=== PATIENT | female | born 1940 | race Caucasian/White ===

== ENCOUNTER 2023-07-21 18:16 | Emergency (ER) | payer MEDICARE, SELFPAY ==
--- NOTE | 2023-07-21 18:30 | ED_ITS ---
HPI - General Adult General Chief complaint: Wound/Laceration Stated complaint: agitated, wound to hand Time Seen by Provider: 07/21/23 18:23 History of Present Illness HPI narrative: This is an 83-year-old woman with dementia presenting for a skin tear to the back of her left hand. Patient got agitated and hit her hand at the memory care unit. She was then sent to the hospital for wound evaluation. Patient is A&O x1. Patient has severe dementia and cannot contribute meaningfully lead to the interview. Related Data Allergies Allergy/AdvReac Type Severity Reaction Status Date / Time No Known Allergies Allergy Verified 07/21/23 19:13 [facility] Past Medical History Medical History Dementia Exam Narrative: APPEARANCE: No apparent distress. Head: atraumatic. EYES: EOMI, NOSE: Atraumatic NECK: Trachea midline RESPIRATORY: No increased rate of breathing CARDIOVASCULAR: RRR, ABDOMINAL: Non-distended MUSCULOSKELETAl: No obvious deformities NEURO: Alert. Moving 4/4 extremities SKIN:: 10 cm arc shaped skin tear to the back the patient's left hand PSYCHIATRIC: Normal affect Procedures Laceration Laceration 1: Date: 07/21/23 Time: 19:46 Site: hand Side (If applicable): left Size (cm): 10 Description: linear Depth: simple, single layer Pre-repair: wound explored and irrigated extensively ====== Skin Level ====== Skin layer closed with: prolene Size (cm): 4-0 Number of sutures: 7 Technique: simple, interrupted ====== Subcutaneous Layer ====== ====== Muscle Layer ====== ====== Tendon Layer ====== Medical Decision Making MDM Narrative Medical decision making narrative: -Course: a 83-year-old patient with dementia presenting with a skin tear to her left hand. Given Versed/haldol for anxiolysis. Wound was repaired using sutures and steristrips. The patient given Tdap and Ancef. Patient discharged back to intermediate return precautions were -Procedures: skin tear repair -Interventions: Tdap, Keflex, Versed, haldol -Shared decision making / Disposition: discharge -RX Keflex 500 mg b.i.d. times and Discharge Plan Discharge Clinical Impression: Dementia, Skin tear Patient Disposition: NH Shelter/Asst Living Condition: Stable Instructions: Antibiotic Form, Care For Your Stitches (ED) Additional Instructions: please complete the course of antibiotics as instructed. Return if you develop signs of infection. Sutures can come out 7-10 days. Prescriptions: New cephalexin 500 mg capsule 500 mg PO Q12H Qty: 14 0RF
[2023-07-21] MEDS: MIDAZOLAM HCL (*CRX) 2 MG/2 ML VIAL IV PUSH (18:35)
[2023-07-21] MEDS: TETANUS,DIPHTHERIA,AC PERTUSSIS ADULT (0.5 ML) BOOSTRIX IM (18:40)
[2023-07-21 18:43] VITALS: BP 106/83; PULSE 78; RESP 15; TEMP 36.5; O2SAT 99
[2023-07-21] MEDS: MIDAZOLAM HCL (*CRX) 2 MG/2 ML VIAL 3 MG IV PUSH (19:09)
[2023-07-21] MEDS: HALOPERIDOL LACTATE 5 MG/ML VIAL IM (19:10)
[2023-07-21 19:26] VITALS: BP 106/83; PULSE 77; RESP 15; O2SAT 96
[2023-07-21] MEDS: WATER, STERILE FOR INJECTION 10 ML VIAL XX (20:09)
[2023-07-21] MEDS: ceFAZolin SODIUM 1 GM VIAL IM (20:09)
== END 2023-07-21 21:08 ==
PROVIDERS: Emergency Provider Emergency Medicine
DX: S61.412A Laceration without foreign body of left hand, initial encounter (principal); W22.03XA Walked into furniture, initial encounter; F03.90 Unspecified dementia, unspecified severity, without behavioral disturbance, psychotic disturbance, mood disturbance, and anxiety; Z23 Encounter for immunization
CPT/HCPCS: 12004; 90471; 90715; 96372; 96374; 96376; 99284; J0690; J1630; J2250